=== PATIENT | male | born 1995 | race Two or more races ===

== ENCOUNTER 2023-04-07 10:42 | Observation (INO) | payer OTHER ==
[2023-04-07] MEDS ORDERED: ACETAMINOPHEN 1000 MG/100 ML BAG IVPB ONE (11:13)
[2023-04-07] MEDS ORDERED: SODIUM CHLORIDE 0.9% 500 ML INFUS.BAG IV ONE (11:18)
[2023-04-07] MEDS ORDERED: ONDANSETRON 4 MG/2 ML VIAL IVPUSH ONE (11:18)
[2023-04-07] MEDS ORDERED: ACETAMINOPHEN INJECTION 100 ML IVPB ONE ×2 (11:31→18:57)
[2023-04-07] MEDS ORDERED: ONDANSETRON 4 MG/2 ML VIAL ONE ×2 (11:32→17:32)
[2023-04-07 12:04] LABS: BASO % 0.3 % (0-2.0); EOS % 0.3 % (0-4.5); HEMATOCRIT 44.7 % (35.4-49); LYMPH % 9.9 % (8-40); MCH 28.3 pg (25.7-33.7); MCHC 33.6 g/dl (32.0-35.9); MEAN CELL VOLUME 84.3 fl (80-96); MEAN PLT VOLUME 8.6 fl (7.5-11.1); MONO % 4.9 % (3.8-10.2); NEUT % 84.6 % (42.8-82.8); PLATELET COUNT 253 10^3/uL (134-434); WHITE BLOOD COUNT 13.7 K/mm3 (4.0-10.0)
[2023-04-07 12:16] LABS: INR 1.03 (0.83-1.09)
[2023-04-07 12:26] LABS: POTASSIUM 4.1 mmol/L (3.5-5.1)
[2023-04-07 12:29] LABS: ALBUMIN 4.7 g/dl (3.4-5.0); BLOOD UREA NITROGEN 18.9 mg/dL (7-18)
[2023-04-07 12:33] LABS: BILIRUBIN,TOTAL 0.8 mg/dL (0.2-1); TOT PROT 8.4 g/dl (6.4-8.2)
[2023-04-07] MEDS ORDERED: morphine CARPU-JECT 4 MG/1 ML DISP.SYRIN IVPUSH ONE (14:20)
[2023-04-07] MEDS ORDERED: morphine SULFATE 4 MG/ML VIAL ONE (14:26)
[2023-04-07] MEDS ORDERED: PIPERACILLIN/TAZOB 3.375 GM 3.375 GM in DEXTROSE 5%-WATER - 50 ML IVPB ONE (14:45)
[2023-04-07] MEDS ORDERED: PIPERACILLIN/TAZOB 3.375 GM 3.375 GM/50 ML BAG IVPB ONE (14:49)
[2023-04-07] MEDS ORDERED: ACETAMINOPHEN 1000 MG/100 ML BAG IVPB PRN ×2 (15:41→19:29)
[2023-04-07] MEDS ORDERED: oxyCODONE HCL 5 MG TABLET PO PRN ×2 (15:44→19:29)
[2023-04-07] MEDS ORDERED: ONDANSETRON 4 MG/2 ML VIAL IVPUSH PRN ×2 (15:44→19:29)
[2023-04-07] MEDS ORDERED: LACTATED RINGERS SOLUTION 1,000 ML IV SCH ×2 (15:45→15:49)
[2023-04-07] MEDS ORDERED: BUPIVACAINE HCL/PF 0.5% (5MG/ML) 10 ML VIAL ONE (17:23)
[2023-04-07 17:29] LABS: EPI CELLS 4 /uL (0-25.1); HYALINE CASTS 0 /uL (0-3.1); PH,URINE 7.5 (5.0-8.0); URINE APPEARANCE CLEAR; URINE BACTERIA 11 /uL (0-1359); URINE BILIRUBIN NEGATIVE (NEGATIVE); URINE COLOR YELLOW; URINE GLUCOSE (UA) NEGATIVE (NEGATIVE); URINE KETONE NEGATIVE (NEGATIVE); URINE LEUK ESTERASE NEGATIVE (NEGATIVE); URINE NITRITE NEGATIVE (NEGATIVE); URINE PROTEIN NEGATIVE (NEGATIVE); URINE RBC 7 /uL (0-23.9); URINE UROBILINOGEN 0.2 mg/dL (0.2-1.0); URINE WBC 1 /uL (0-25.8)
[2023-04-07] MEDS ORDERED: LIDOCAINE HCL/PF 2% SDV 5ML VIAL ONE (17:32)
[2023-04-07] MEDS ORDERED: PROPOFOL 20 ML ONE (17:32)
[2023-04-07] MEDS ORDERED: DEXAMETHASONE SOD PHOSPHATE 4 MG/1 ML VIAL ONE (17:32)
[2023-04-07] MEDS ORDERED: SUCCINYLCHOLINE CHLORIDE 200 MG/10 ML SYRINGE ONE (17:32)
[2023-04-07] MEDS ORDERED: ROCURONIUM BROMIDE 50 MG/5 ML SYRINGE ONE (17:32)
[2023-04-07] MEDS ORDERED: MIDAZOLAM HCL 2 MG/2 ML SINGLE DOSE VIAL ONE (17:33)
[2023-04-07] MEDS ORDERED: BUPIVACAINE HCL/PF 0.5% (5 MG/ML) 30 ML VIAL IJ ONE ×2 (18:32)
[2023-04-07] MEDS ORDERED: KETOROLAC TROMETHAMINE 30 MG/1 ML VIAL ONE (18:33)
[2023-04-07] MEDS ORDERED: GLYCOPYRROLATE 0.2 MG/1 ML VIAL ONE (18:34)
[2023-04-07] MEDS ORDERED: NEOSTIGMINE METHYLSULFATE 0.5 MG/1 ML - 10 ML MDV ONE (18:34)
[2023-04-07] MEDS: LACTATED RINGERS SOLUTION 1,000 ML IV SCH (20:10)
[2023-04-08] MEDS: LACTATED RINGERS SOLUTION 1,000 ML IV SCH (05:52)
[2023-04-08 07:54] VITALS: BMI 25.2
[2023-04-08 08:57] LABS: HEMATOCRIT 44.1 % (35.4-49); HEMOGLOBIN 14.6 GM/dL (11.7-16.9); LYMPH % 9.1 % (8-40); MCH 28.1 pg (25.7-33.7); MCHC 33.2 g/dl (32.0-35.9); MEAN CELL VOLUME 84.8 fl (80-96); MEAN PLT VOLUME 9.2 fl (7.5-11.1); MONO % 4.9 % (3.8-10.2); PLATELET COUNT 282 10^3/uL (134-434); RBC 5.21 M/mm3 (4.00-5.60); WHITE BLOOD COUNT 11.1 K/mm3 (4.0-10.0)
[2023-04-08 09:12] LABS: POTASSIUM 4.2 mmol/L (3.5-5.1)
[2023-04-08 09:18] LABS: CALCIUM 9.7 mg/dL (8.5-10.1)
[2023-04-08 09:19] LABS: ALBUMIN 4.2 g/dl (3.4-5.0)
[2023-04-08 09:22] LABS: CREATININE 0.9 mg/dL (0.55-1.3)
[2023-04-08 09:23] LABS: BILIRUBIN,TOTAL 1.5 mg/dL (0.2-1)
[2023-04-08 09:24] LABS: TOT PROT 8.1 g/dl (6.4-8.2)
[2023-04-08] MEDS ORDERED: ACETAMINOPHEN 500 MG TABLET (FP) PO PRN (09:35)
[2023-04-08] MEDS ORDERED: oxyCODONE HCL 5 MG TABLET PO PRN (09:35)
[2023-04-08 09:53] VITALS: BP 104/73; PULSE 84; RESP 20; TEMP 98.4
[2023-04-08] MEDS ORDERED: CEFTRIAXONE 1 GM in DEXTROSE 5%-WATER - 50 ML IVPB SCH (10:00)
== END 2023-04-08 12:10 | disposition home or self-care (01) ==
LOC: JER 10:42 → UNDOADMOB 14:54 → INTOOBSV 14:54 → JERBED 14:54 → J8W 18:18
PROVIDERS: ADMIT Internal Medicine; ATTEND Nurse Practitioner Acute Care
PROC: 3E0337Z Introduction of Electrolytic and Water Balance Substance into Peripheral Vein, Percutaneous Approach (ICD-10-PCS; 2023-04-07)
PROC: 3E033GC Introduction of Other Therapeutic Substance into Peripheral Vein, Percutaneous Approach (ICD-10-PCS; 2023-04-07)
PROC: 3E03329 Introduction of Other Anti-infective into Peripheral Vein, Percutaneous Approach (ICD-10-PCS; 2023-04-07)
PROC: 0DTJ4ZZ Resection of Appendix, Percutaneous Endoscopic Approach (ICD-10-PCS; 2023-04-07)
PROC: 3E033NZ Introduction of Analgesics, Hypnotics, Sedatives into Peripheral Vein, Percutaneous Approach (ICD-10-PCS; principal; 2023-04-07 17:30)
DX: K37 Unspecified appendicitis (principal)
CPT/HCPCS: 36415; 71045-TC-FY; 74177-TC; 76705-TC; 80053; 81003; 83690; 85025; 85610; 85730; 86850; 86900; 86901; 87086; 87635; 88304-TC; 94760; 99285-25; G0378; Q9967